=== PATIENT | female | born 1980 | race Caucasian/White ===

== ENCOUNTER 2017-02-14 06:22 | Emergency (ER) | payer OTHER ==
[~2017-02-14] VITALS: Ht 154.9 cm; Wt 86.4 kg
[2017-02-14 07:24] LABS: INFLUENZA TYPE B NEGATIVE FOR TYPE B (NEGATIVE)
[2017-02-14 07:31] VITALS: BP 128/82
== END 2017-02-14 07:35 | disposition home or self-care (01) ==
LOC: EMS 06:23
DX: J20.9 Acute bronchitis, unspecified (principal); J06.9 Acute upper respiratory infection, unspecified; H10.9 Unspecified conjunctivitis; H72.91 Unspecified perforation of tympanic membrane, right ear
CPT/HCPCS: 87804; 99284

== ENCOUNTER 2018-09-28 09:44 | Emergency (ER) | payer OTHER ==
[~2018-09-28] VITALS: Ht 154.9 cm; Wt 94.1 kg
[2018-09-28] MEDS ORDERED: PB/HYOSCY/ATR/SCOP/LIDO/MAALOX 55 ML BOTTLE PO ONE (10:30)
[2018-09-28] MEDS ORDERED: SODIUM CHLORIDE 0.9% 1,000 ML IV ONE (10:30)
[2018-09-28 11:09] LABS: APPEARANCE,URINE CLEAR (CLEAR); BILIRUBIN,URINE NEGATIVE (NEGATIVE); GLUCOSE, URINE (UA) NEGATIVE (NEGATIVE); KETONES,URINE TRACE mg/dL (NEGATIVE); LEUKOCYTE ESTERASE ,URINE NEGATIVE (NEGATIVE); NITRATE,URINE NEGATIVE (NEGATIVE); OCCULT BLOOD,URINE NEGATIVE (NEGATIVE); PROTEIN,URINE NEGATIVE (NEGATIVE); UROBILINOGEN,URINE 0.2 mg/dL (<=1.0)
[2018-09-28 11:11] LABS: BACTERIA,URINE None Seen /HPF (None Seen); RBC,URINE None Seen /HPF (0-2); SQUAMOUS EPITHELIAL CELL,UR Few /LPF (None Seen); WBC,URINE None Seen /HPF (0-5)
[2018-09-28 11:33] LABS: EOSINOPHILS % (AUTO) 1.2 % (1.0-6.0); HEMATOCRIT 44.8 % (36-46); HEMOGLOBIN 15.3 g/dL (12.0-16.0); LYMPHOCYTES # (AUTO) 2.3 K/uL (1.0-4.8); LYMPHOCYTES % (AUTO) 20.5 % (22.0-44.0); MEAN CORPUSCULAR HEMOGLOBIN 32.3 pg (26.0-34.0); MEAN CORPUSCULAR HGB CONC 34.1 G/dL (31.0-37.0); MEAN CORPUSCULAR VOLUME 95 fL (80-100); MONOCYTES # (AUTO) 0.6 K/uL (0.1-1.0); MONOCYTES % (AUTO) 5.4 % (2.0-9.0); NEUTROPHILS # (AUTO) 8.2 K/uL (1.8-7.7); NEUTROPHILS % (AUTO) 71.9 % (40.0-70.0); PLATELET COUNT (AUTO) 297 K/uL (150-450); RED BLOOD CELL COUNT(AUTO) 4.73 MIL/uL (4.00-5.20); RED CELL DISTRIBUTION WIDTH 13.9 % (11.5-14.5)
[2018-09-28 11:44] LABS: ANION GAP 8 mmol/L (8-16); CALCIUM, TOTAL 8.7 mg/dL (8.8-10.5); CARBON DIOXIDE 26 mmol/L (22-29); CHLORIDE 100 mmol/L (98-107); GLOMERULAR FILTR. RATE CALC > 60 mL/min (>60); GLUCOSE,RANDOM 105 mg/dL (70-110); POTASSIUM 3.6 mmol/L (3.5-5.1); SODIUM SERUM 134 mmol/L (136-145); UREA NITROGEN, BLOOD 10 mg/dL (7-18)
[2018-09-28 11:57] LABS: ALANINE AMINOTRANSFERASE 25 U/L (12-78); ALBUMIN 3.9 g/dL (3.4-5.0); ALKALINE PHOSPHATASE 83 U/L (46-116); ASPARTATE AMINOTRANSFERASE 12 U/L (15-37); BILIRUBIN,TOTAL 0.4 mg/dL (0.1-1.0); HCG,QUANTITATIVE < 1 mIU/mL (0-6); LIPASE 87 U/L (73-393); TOTAL PROTEIN, SERUM 7.2 g/dL (6.4-8.2)
[2018-09-28 13:00] VITALS: BP 140/70
== END 2018-09-28 13:14 | disposition home or self-care (01) ==
LOC: EMS 09:45
DX: K25.9 Gastric ulcer, unspecified as acute or chronic, without hemorrhage or perforation (principal)
CPT/HCPCS: 36415; 74022; 80053; 81001; 83690; 84702; 85025; 96360; 99285; J7030

== ENCOUNTER 2020-10-26 12:36 | Emergency (ER) | payer OTHER ==
[~2020-10-26] VITALS: Ht 154.9 cm; Wt 81.8 kg
[2020-10-26] MEDS ORDERED: OMEP20 PO (12:44)
[2020-10-26 13:20] VITALS: BP 133/93
[2020-10-26 13:37] LABS: BASOPHILS % (AUTO) 0.4 % (0.0-2.0); EOSINOPHILS % (AUTO) 0 % (1.0-6.0); HEMATOCRIT 44.4 % (36-46); HEMOGLOBIN 14.7 g/dL (12.0-16.0); LYMPHOCYTES % (AUTO) 6.8 % (22.0-44.0); MEAN CORPUSCULAR HEMOGLOBIN 30.7 pg (26.0-34.0); MEAN CORPUSCULAR HGB CONC 33.1 G/dL (31.0-37.0); MEAN CORPUSCULAR VOLUME 93 fL (80-100); MONOCYTES # (AUTO) 0.4 K/uL (0.1-1.0); MONOCYTES % (AUTO) 2.9 % (2.0-9.0); NEUTROPHILS # (AUTO) 13.6 K/uL (1.8-7.7); PLATELET COUNT (AUTO) 344 K/uL (150-450); RED BLOOD CELL COUNT(AUTO) 4.79 MIL/uL (4.00-5.20); RED CELL DISTRIBUTION WIDTH 14.1 % (11.5-14.5)
[2020-10-26 13:41] LABS: NEUTROPHILS % (AUTO) 89.9 % (40.0-70.0)
[2020-10-26 13:50] LABS: ANION GAP 8 mmol/L (8-16); CALCIUM, TOTAL 8.7 mg/dL (8.8-10.5); CARBON DIOXIDE 26 mmol/L (22-29); CHLORIDE 98 mmol/L (98-107); CREATININE 0.52 mg/dL (0.60-1.30); GLOMERULAR FILTR. RATE CALC > 60 mL/min (>60); GLUCOSE,RANDOM 144 mg/dL (70-110); POTASSIUM 3.7 mmol/L (3.5-5.1); SODIUM SERUM 132 mmol/L (136-145); UREA NITROGEN, BLOOD 12 mg/dL (7-18)
[2020-10-26 14:03] LABS: ALANINE AMINOTRANSFERASE 22 U/L (12-78); ALBUMIN 3.9 g/dL (3.4-5.0); ALKALINE PHOSPHATASE 98 U/L (46-116); ASPARTATE AMINOTRANSFERASE 12 U/L (15-37); BILIRUBIN,TOTAL 0.4 mg/dL (0.1-1.0); HCG,QUANTITATIVE 1 mIU/mL (0-6); LIPASE 51 U/L (73-393); TOTAL PROTEIN, SERUM 7.3 g/dL (6.4-8.2)
== END 2020-10-26 15:36 | disposition left against medical advice (07) ==
LOC: EMS 12:38
DX: R10.10 Upper abdominal pain, unspecified (principal); Z53.21 Procedure and treatment not carried out due to patient leaving prior to being seen by health care provider